=== PATIENT | female | born 1960 | race Caucasian/White ===

== ENCOUNTER 2017-06-28 13:55 | Day surgery (SDC) | payer OTHER ==
[2017-06-28] MEDS ORDERED: PROPOFOL 20 ML (15:52)
== END 2017-06-28 18:00 | disposition home or self-care (01) ==
LOC: GIL 13:55
DX: K21.0 Gastro-esophageal reflux disease with esophagitis (principal); K44.9 Diaphragmatic hernia without obstruction or gangrene; E03.9 Hypothyroidism, unspecified; J45.909 Unspecified asthma, uncomplicated
CPT/HCPCS: 43239; 88305; 88312; 88313